=== PATIENT | female | born 1955 | race Caucasian/White ===

== ENCOUNTER 2017-01-04 10:01 | Observation (INO) | payer BC ==
[2017-01-04] MEDS ORDERED: hydrALAZINE HCL 20 MG/ML 1 ML VIAL IVP STA (10:30)
--- NOTE | 2017-01-04 10:38 | ED ---
General Adult HPI - General Source: patient, RN notes reviewed Mode of arrival: ambulatory Limitations: no limitations <Tom Ontiveros - Last Filed: 01/04/17 12:53> <Fernando Topete - Last Filed: 01/04/17 13:29> - General Chief complaint: Recheck/Abnormal Lab/Rx Stated complaint: HTN Time Seen by Provider: 01/04/17 10:23 - History of Present Illness Initial comments: Patient 61-year-old female with significant past medical history for hypertension, who presents emergency room today with a chief complaint of elevated blood pressure and a headache. She states she can tell when her blood pressure is elevated she does get these headaches. States she went to the pharmacy noticeable blood pressure was elevated there. She states metoprolol along with lisinopril. She is on 50 mg metoprolol 5 mg lisinopril. She states she took these medications. Patient denies any other complaints associated symptoms. Patient denies any recent fever, chills, shortness of breath, chest pain, back pain, abdominal pain, nausea or vomiting, numbness or tingling, dysuria or hematuria, constipation or diarrhea, visual changes, or any other complaints (Tom Ontiveros) - Related Data Home Medications Medication Instructions Recorded Confirmed Lisinopril [Zestril] 5 mg PO DAILY 06/02/15 01/04/17 Metoprolol Succinate [Toprol XL] 50 mg PO DAILY 06/02/15 01/04/17 Azithromycin [Zithromax Z-pack] See Taper PO DIRECTED 01/04/17 01/04/17 Benzonatate [Tessalon Perles] 100 mg PO TID PRN 01/04/17 01/04/17 Fluticasone Nasal Norris [Flonase 1 - 2 spr EA NOSTRIL DAILY PRN 01/04/17 Nasal Norris] Allergies Allergy/AdvReac Type Severity Reaction Status Date / Time meperidine HCl [From Demerol] AdvReac Nausea Verified 01/04/17 11:02 Review of Systems ROS Other: All systems not noted in ROS Statement are negative. <Tom Ontiveros - Last Filed: 01/04/17 12:53> ROS Other: All systems not noted in ROS Statement are negative. <Fernando Topete - Last Filed: 01/04/17 13:29> ROS Statement: Those systems with pertinent positive or pertinent negative responses have been documented in the HPI. Past Medical History Past Medical History: Hypertension History of Any Multi-Drug Resistant Organisms: None Reported Past Surgical History: Bladder Surgery, Hysterectomy Past Psychological History: Anxiety, Bipolar, Depression Smoking Status: Current some day smoker Past Alcohol Use History: Heavy Past Drug Use History: None Reported <WestonTom - Last Filed: 01/04/17 12:53> General Exam Limitations: no limitations <WestonTom - Last Filed: 01/04/17 12:53> General appearance: alert, in no apparent distress Head exam: Present: atraumatic, normocephalic, normal inspection Eye exam: Present: normal appearance, PERRL, EOMI. Absent: scleral icterus, conjunctival injection, periorbital swelling ENT exam: Present: normal exam, mucous membranes moist Neck exam: Present: normal inspection. Absent: tenderness, meningismus, lymphadenopathy Respiratory exam: Present: normal lung sounds bilaterally. Absent: respiratory distress, wheezes, rales, rhonchi, stridor Cardiovascular Exam: Present: regular rate, normal rhythm, normal heart sounds. Absent: systolic murmur, diastolic murmur, rubs, gallop, clicks GI/Abdominal exam: Present: soft, normal bowel sounds. Absent: distended, tenderness, guarding, rebound, rigid Extremities exam: Present: normal inspection, full ROM, normal capillary refill. Absent: tenderness, pedal edema, joint swelling, calf tenderness Back exam: Present: normal inspection Neurological exam: Present: alert, oriented X3, CN II-XII intact Psychiatric exam: Present: normal affect, normal mood Skin exam: Present: warm, dry, intact, normal color. Absent: rash <Fernando Topete - Last Filed: 01/04/17 13:29> - General Exam Comments Initial Comments: General: The patient is awake and alert, in no distress, and does not appear acutely ill. Eye: Pupils are equal, round and reactive to light, extra-ocular movements are intact. No nystagmus. There is normal conjunctiva bilaterally. No signs of icterus. Ears, nose, mouth and throat: There are moist mucous membranes and no oral lesions. Neck: The neck is supple, there is no tenderness or JVD. Cardiovascular: There is a regular rate and rhythm. No murmur, rub or gallop is appreciated. Respiratory: Lungs are clear to auscultation, respirations are non-labored, breath sounds are equal. No wheezes, stridor, rales, or rhonchi. Musculoskeletal: Normal ROM, no tenderness. Strength 5/5. Sensation intact. Pulses equal bilaterally 2+. Neurological: A&O x 3. CN II-XII intact, There are no obvious motor or sensory deficits. Coordination appears grossly intact. Speech is normal. Skin: Skin is warm and dry and no rashes or lesions are noted. Psychiatric: Cooperative, appropriate mood & affect, normal judgment. (Tom Ontiveros) Course <Tom Ontiveros - Last Filed: 01/04/17 12:53> <Fernando Topete - Last Filed: 01/04/17 13:29> Vital Signs 01/04/17 01/04/17 01/04/17 10:02 10:47 12:01 Temperature 98.1 F Pulse Rate 91 78 87 Respiratory 20 18 18 Rate Blood Pressure 187/86 156/74 169/79 O2 Sat by Pulse 99 98 98 Oximetry - Reevaluation(s) Reevaluation #1: 01/04/17 10:59 I did reevaluate the patient at this time she does admit that she had chest pain earlier this morning. Patient did not talk about chest pain and initial HPI. Apparently she did mention palpitations and chest pain to nursing staff. Did see a EKG at 1052 were notified about the symptoms and confirmed with patient at this time. She states she is currently chest pain-free. (Tom Ontiveros) EKG Findings - EKG Comments: EKG Findings:: EKG was 1052: Shows normal sinus rhythm at 94 bpm NJ interval 154. QRS 98. QT/QTC 384/480. No acute ST changes. <Tom Ontiveros - Last Filed: 01/04/17 12:53> Medical Decision Making - Lab Data Result diagrams: 01/04/17 11:15 01/04/17 11:15 <Tom Ontiveros - Last Filed: 01/04/17 12:53> - Lab Data Result diagrams: 01/04/17 11:15 01/04/17 11:15 <Fernando Topete - Last Filed: 01/04/17 13:29> - Medical Decision Making Patient reexamined at this time shows no signs of distress. Patient is resting comfortably. Patient pain free at this time. EKG shows normal sinus rhythm with prolonged QT. No ST changes. Cardiac enzymes negative. She does admit to some chest discomfort with palpitations and also stating that she had some back pain at the time. Patient will be admitted to the hospital for serial enzymes. Case discussed with attending physician . (Tom Ontiveros) 61 female ER for evaluation of chest pain palpitations, history of high blood pressure, initial EKG and troponin are negative. Patient be admitted for serial troponins, EKG and anticoagulation, cardiology observation (Fernando Topete) - Lab Data Lab Results 01/04/17 01/04/17 01/04/17 Range/Units 11:15 11:15 11:15 WBC 8.6 (3.8-10.6) k/uL RBC 4.33 (3.80-5.40) m/uL Hgb 13.5 (11.4-16.0) gm/dL Hct 40.0 (34.0-46.0) % MCV 92.2 (80.0-100.0) fL MCH 31.1 (25.0-35.0) pg MCHC 33.7 (31.0-37.0) g/dL RDW 13.0 (11.5-15.5) % Plt Count 403 (150-450) k/uL Neutrophils % 68 % Lymphocytes % 27 % Monocytes % 3 % Eosinophils % 1 % Basophils % 0 % Neutrophils # 5.8 (1.3-7.7) k/uL Lymphocytes # 2.3 (1.0-4.8) k/uL Monocytes # 0.3 (0-1.0) k/uL Eosinophils # 0.1 (0-0.7) k/uL Basophils # 0.0 (0-0.2) k/uL PT (9.0-12.0) sec INR (<1.1) APTT (22.0-30.0) sec Sodium 143 (137-145) mmol/L Potassium 3.8 (3.5-5.1) mmol/L Chloride 106 (98-107) mmol/L Carbon Dioxide 26 (22-30) mmol/L Anion Gap 11 mmol/L BUN 9 (7-17) mg/dL Creatinine 0.70 (0.52-1.04) mg/dL Est GFR (MDRD) Af Amer >60 (>60 ml/min/1.73 sqM) Est GFR (MDRD) Non-Af >60 (>60 ml/min/1.73 sqM) Glucose 103 H (74-99) mg/dL Calcium 9.7 (8.4-10.2) mg/dL Magnesium 2.2 (1.6-2.3) mg/dL Total Bilirubin 0.6 (0.2-1.3) mg/dL AST 22 (14-36) U/L ALT 34 (9-52) U/L Alkaline Phosphatase 76 (38-126) U/L Total Creatine Kinase 102 (30-135) U/L CK-MB (CK-2) 0.8 (0.0-2.4) ng/mL CK-MB (CK-2) Rel Index 0.8 Troponin I <0.012 (0.000-0.034) ng/mL Total Protein 7.6 (6.3-8.2) g/dL Albumin 4.3 (3.5-5.0) g/dL 01/04/17 Range/Units 11:15 WBC (3.8-10.6) k/uL RBC (3.80-5.40) m/uL Hgb (11.4-16.0) gm/dL Hct (34.0-46.0) % MCV (80.0-100.0) fL MCH (25.0-35.0) pg MCHC (31.0-37.0) g/dL RDW (11.5-15.5) % Plt Count (150-450) k/uL Neutrophils % % Lymphocytes % % Monocytes % % Eosinophils % % Basophils % % Neutrophils # (1.3-7.7) k/uL Lymphocytes # (1.0-4.8) k/uL Monocytes # (0-1.0) k/uL Eosinophils # (0-0.7) k/uL Basophils # (0-0.2) k/uL PT 10.1 (9.0-12.0) sec INR 1.0 (<1.1) APTT 22.5 (22.0-30.0) sec Sodium (137-145) mmol/L Potassium (3.5-5.1) mmol/L Chloride (98-107) mmol/L Carbon Dioxide (22-30) mmol/L Anion Gap mmol/L BUN (7-17) mg/dL Creatinine (0.52-1.04) mg/dL Est GFR (MDRD) Af Amer (>60 ml/min/1.73 sqM) Est GFR (MDRD) Non-Af (>60 ml/min/1.73 sqM) Glucose (74-99) mg/dL Calcium (8.4-10.2) mg/dL Magnesium (1.6-2.3) mg/dL Total Bilirubin (0.2-1.3) mg/dL AST (14-36) U/L ALT (9-52) U/L Alkaline Phosphatase (38-126) U/L Total Creatine Kinase (30-135) U/L CK-MB (CK-2) (0.0-2.4) ng/mL CK-MB (CK-2) Rel Index Troponin I (0.000-0.034) ng/mL Total Protein (6.3-8.2) g/dL Albumin (3.5-5.0) g/dL Critical Care Time Critical Care Time: Yes Total Critical Care Time: 31 <Fernando Topete - Last Filed: 01/04/17 13:29> Disposition Time of Disposition: 12:45 <Tom Ontiveros - Last Filed: 01/04/17 12:53> <Fernando Topete - Last Filed: 01/04/17 13:29> Clinical Impression: Chest pain, Hypertension Disposition: ADMITTED IP TO THIS [facility] Condition: Stable Referrals: Eloy Holguin MD [Primary Care Provider] - 1-2 days
--- NOTE | 2017-01-04 11:12 | XR ---
EXAMINATION TYPE: XR chest 2V DATE OF EXAM: 01/04/2017 11:07 AM COMPARISON: None HISTORY: 61-year-old female with chest pain, headache, elevated blood pressure TECHNIQUE: PA and lateral views FINDINGS: The cardiomediastinal silhouette, aorta, and pulmonary vasculature are within normal limits. Mild int erstitial prominence has a chronic appearance. No consolidation or pleural effusion. IMPRESSION: Chronic, senescent appearing changes without acute cardiopulmonary process.
[2017-01-04 11:33] LABS: Basophils % (A) 0 %; CH 31.6; CHCM 34.5; Eosinophils # (A) 0.1 k/uL (0-0.7); Eosinophils % (A) 1 %; HDW 2.31; HGB 13.5 gm/dL (11.4-16.0); Luc # (Auto) 0.14; Luc % (Auto) 2; Lymphocytes # (A) 2.3 k/uL (1.0-4.8); Lymphocytes % (A) 27 %; MCH 31.1 pg (25.0-35.0); MCHC 33.7 g/dL (31.0-37.0); MCV 92.2 fL (80.0-100.0); Mean Platelet Volume 6.3; Monocytes # (A) 0.3 k/uL (0-1.0); Monocytes % (A) 3 %; Neutrophils # (A) 5.8 k/uL (1.3-7.7); Neutrophils % (A) 68 %; RBC 4.33 m/uL (3.80-5.40); WBC 8.6 k/uL (3.8-10.6); WBC (Perox) 9.01
[2017-01-04 11:48] LABS: ALT 34 U/L (9-52); AST 22 U/L (14-36); Alkaline Phosphatase 76 U/L (38-126); Anion Gap 11 mmol/L; Blood Urea Nitrogen 9 mg/dL (7-17); Calcium 9.7 mg/dL (8.4-10.2); Carbon Dioxide 26 mmol/L (22-30); Chloride 106 mmol/L (98-107); Glucose 103 mg/dL (74-99); Magnesium 2.2 mg/dL (1.6-2.3); Non-African American GFR(MDRD) >60 (>60 ml/min/1.73 sqM); Potassium 3.8 mmol/L (3.5-5.1); Sodium 143 mmol/L (137-145); Total Bilirubin 0.6 mg/dL (0.2-1.3); Total Protein 7.6 g/dL (6.3-8.2)
[2017-01-04 12:03] LABS: Creatine Kinase 102 U/L (30-135)
[2017-01-04 12:16] LABS: Creatine Kinase MB 0.8 ng/mL (0.0-2.4); Troponin I <0.012 ng/mL (0.000-0.034)
[2017-01-04 12:31] LABS: Partial Thromboplastin Time 22.5 sec (22.0-30.0); Prothrombin Time 10.1 sec (9.0-12.0)
[2017-01-04] MEDS ORDERED: SODIUM CHLORIDE 0.9% 1,000 ML IV ONE (12:56)
[2017-01-04] MEDS ORDERED: ASPIRIN 81 MG CHEW PO STA (12:56)
[2017-01-04] MEDS ORDERED: HEPARIN SODIUM,PORCINE 5,000 UNIT/ML 1 ML VIAL IV ONE (12:56)
[2017-01-04] MEDS ORDERED: NITROGLYCERIN SL TABS 0.4 MG TAB SUBLINGUAL PRN (12:56)
[2017-01-04] MEDS ORDERED: HEPARIN SODIUM,PORCINE/D5W PMX 25,000 UNIT in DEXTROSE/WATER 1 500ML.BAG IV SCH (13:00)
[2017-01-04 16:57] VITALS: BMI 32.8
[2017-01-04 18:00] LABS: Creatine Kinase 95 U/L (30-135)
[2017-01-04 18:12] LABS: Creatine Kinase MB 0.7 ng/mL (0.0-2.4); Troponin I <0.012 ng/mL (0.000-0.034)
[2017-01-04] MEDS ORDERED: MAG HYDROX/AL HYDROX/SIMETH 30 ML CUP PO PRN (19:28)
[2017-01-04 19:53] VITALS: RESP 18
[2017-01-04] MEDS ORDERED: AZITHROMYCIN 250 MG TAB PO SCH (21:00)
[2017-01-04] MEDS ORDERED: FLUTICASONE 50MCG/SPRAY NASAL 16GM EA NOSTRIL PRN (21:00)
[2017-01-04] MEDS ORDERED: BENZONATATE 100 MG CAP PO PRN (21:00)
[2017-01-04] MEDS ORDERED: MELATONIN 3 MG TABLET PO SCH (21:15)
[2017-01-04] MEDS: traMADol 50 MG TAB PO PRN ×2 (22:10→22:14)
[2017-01-04] MEDS: ALPRAZolam 0.25 MG TAB PO PRN (22:11)
[2017-01-04 23:39] LABS: Creatine Kinase 86 U/L (30-135)
[2017-01-04 23:49] LABS: Creatine Kinase MB 0.7 ng/mL (0.0-2.4); Troponin I <0.012 ng/mL (0.000-0.034)
[2017-01-04] MEDS: LISINOPRIL 5 MG TAB PO SCH (23:57)
[2017-01-05 07:20] LABS: Cholesterol 144 mg/dL (<200); HDL Cholesterol 54 mg/dL (40-60); Triglycerides 88 mg/dL (<150)
[2017-01-05] MEDS: traMADol 50 MG TAB PO PRN (07:35)
[2017-01-05] MEDS ORDERED: AZITHROMYCIN 250 MG TAB PO SCH (09:00)
[2017-01-05] MEDS ORDERED: ASPIRIN 325 MG TAB PO SCH (09:00)
[2017-01-05] MEDS ORDERED: METOPROLOL SUCCINATE (ER) 50 MG TAB.ER.24H PO SCH (09:00)
--- NOTE | 2017-01-05 10:52 | P.CRDCN ---
History of Present Illness Consult date: 01/05/17 History of present illness: This is a 61-year-old female with history of hypertension who was involved was recently and had cold-like symptoms and cough. Patient could not get any antibiotics until she came back here. She came to the emergency room mainly with complaints of elevated blood pressure and headache. She went to the pharmacy and they found out that her blood pressure was high. She was taking lisinopril and metoprolol for blood pressure control. In the emergency room. She also complained of mild chest tightness which is has had from time to time. Patient's blood pressure is well controlled this morning. She is feeling much better. She feels like she wants to go home. Her EKGs did not reveal any acute changes. Cardiac enzymes are negative. We'll get an echocardiogram done this morning. If that shows normal wall motion and thickening, patient could be discharged home. She could be scheduled for outpatient stress test and follow-up in the office. Review of Systems REVIEW OF SYSTEMS: CONSTITUTIONAL:. Patient is doing well. No complaints of fever or chills EYES: Denies diplopia, blurring of vision EARS, NOSE, MOUTH, THROAT: Denies headaches, denies sore throat. CARDIOVASCULAR: As per HPI RESPIRATORY: As per HPI GASTROINTESTINAL: Denies change in appetite, denies abdominal pain, denies diarrhea GENITOURINARY: Denies hematuria, denies infections. MUSKULOSKELETAL: Denies pain, denies swelling. Denies any cramps or claudication INTEGUMENTARY: Denies rash, denies eczema. NEUROLOGICAL: Denies focal weakness, or visual disturbance. Denies any dizziness or syncope PSYCHIATRIC: Denies anxiety, denies depression. HEMATOLOGIC/LYMPHATIC: Denies any bleeding, denies enlarged lymph nodes. Past Medical History Past Medical History: GERD/Reflux, Hypertension Additional Past Medical History / Comment(s): rheumatic fever History of Any Multi-Drug Resistant Organisms: None Reported Past Surgical History: Bladder Surgery, Hysterectomy Additional Past Surgical History / Comment(s): pin in right foot Past Anesthesia/Blood Transfusion Reactions: No Reported Reaction Past Psychological History: Anxiety, Bipolar, Depression Smoking Status: Current some day smoker Past Alcohol Use History: Heavy Past Drug Use History: None Reported - Past Family History Mother Family Medical History: Hypertension Additional Family Medical History / Comment(s): bipolar Medications and Allergies Home Medications Medication Instructions Recorded Confirmed Type Lisinopril [Zestril] 5 mg PO DAILY 06/02/15 01/04/17 History Metoprolol Succinate [Toprol XL] 50 mg PO DAILY 06/02/15 01/04/17 History Azithromycin [Zithromax Z-pack] See Taper PO DIRECTED 01/04/17 01/04/17 History Benzonatate [Tessalon Perles] 100 mg PO TID PRN 01/04/17 01/04/17 History Fluticasone Nasal Ward [Flonase 1 - 2 spr EA NOSTRIL DAILY PRN 01/04/17 History Nasal Ward] Allergies Allergy/AdvReac Type Severity Reaction Status Date / Time meperidine HCl [From Demerol] AdvReac Nausea Verified 01/04/17 11:02 Physical Exam Vitals: Vital Signs Temp Pulse Pulse Resp BP BP Pulse Ox 01/05/17 08:00 97.6 F 74 18 125/66 96 01/05/17 04:00 98 F 76 18 145/71 99 01/05/17 00:00 76 18 01/04/17 23:20 76 18 141/81 99 01/04/17 20:00 78 18 01/04/17 19:52 97.5 F L 99 18 153/94 97 01/04/17 16:30 98.0 F 92 16 170/73 97 01/04/17 16:25 99.0 F 84 18 162/80 98 01/04/17 15:59 99.0 F 84 18 162/80 98 01/04/17 14:00 76 18 168/77 99 Intake and Output 01/04/17 01/05/17 01/05/17 22:59 06:59 14:59 Intake Total 610 320 Balance 610 320 Intake: Intake, IV Titration 160 320 Amount Heparin Sodium,Porcine/ 80 160 D5w Pmx 25,000 unit In Dextrose/Water 1 500ml. bag @ 10.651 UNITS/KG/HR 20 mls/hr IV .Q24H [facility] Rx #:[id number] Sodium Chloride 0.9% 1, 80 160 000 ml @ 20 mls/hr IV . Q24H [facility] Rx#:[id number] Oral 450 Other: Voiding Method Toilet Toilet Toilet # Voids 2 2 Weight 92.2 kg GENERAL EXAM: Patient is alert and oriented and doesn't appear to be in any acute distress HEENT: Normocephalic. Normal reaction of pupils, equal size, normal range of extraocular motion. No erythema or exudates in the throat. NECK: No masses, no nuchal rigidity. CHEST: No chest wall deformity. LUNGS: Equal air entry with no crackles or wheeze. HEART: S1 and S2 normal with no audible mumurs or gallops. Regular rhythm, femorals equal on both sides.. ABDOMEN: No hepatosplenomegaly, normal bowel sounds, no guarding or rigidity. SKIN: No rashes CENTRAL NERVOUS SYSTEM: No focal deficits. EXTREMITIES: No cyanosis, clubbing or edema. Results 01/04/17 11:15 01/04/17 11:15 Cardiac Enzymes 01/04/17 01/04/17 Range/Units 17:17 22:37 CK-MB (CK-2) 0.7 0.7 (0.0-2.4) ng/mL Troponin I <0.012 <0.012 (0.000-0.034) ng/mL Coagulation 01/05/17 Range/Units 06:16 APTT 31.7 H (22.0-30.0) sec Lipids 01/05/17 Range/Units 06:16 Triglycerides 88 (<150) mg/dL Cholesterol 144 (<200) mg/dL HDL Cholesterol 54 (40-60) mg/dL Current Medications Generic Name Dose Route Start Last Admin Trade Name Freq PRN Reason Stop Dose Admin Al Hydroxide/Mg Hydroxide 30 ml 01/04/17 19:28 Maalox PO Q4HR PRN GI Upset Alprazolam 0.25 mg 01/04/17 21:03 01/04/17 22:11 Xanax PO 0.25 mg TID PRN Administration Anxiety Aspirin 325 mg 01/05/17 09:00 Aspirin PO DAILY [facility] Azithromycin 250 mg 01/05/17 09:00 Zithromax PO DAILY [facility] Benzonatate 100 mg 01/04/17 21:00 01/04/17 22:12 Tessalon Perles PO 100 mg TID PRN Administration Cough Fluticasone Propionate 1 - 2 spray 01/04/17 21:00 01/04/17 22:07 Flonase Nasal Ward EA NOSTRIL 1 spray DAILY PRN Administration Allergy Symptoms Heparin Sodium/Dextrose 25,000 500 mls @ 20 mls/hr 01/04/17 13:00 01/04/17 13 :47 unit/ IV Solution IV 10.651 units/kg/hr .Q24H [facility] 20 mls/hr Protocol Administration 10.651 UNITS/KG/HR Sodium Chloride 1,000 mls @ 20 mls/hr 01/04/17 12:56 01/04/17 14:36 Saline 0.9% IV 01/05/17 12:55 20 mls/hr .Q24H ONE Administration Lisinopril 5 mg 01/04/17 21:00 01/04/17 23:57 Zestril PO Not Given DAILY [facility]IN Melatonin 3 mg 01/04/17 21:15 01/04/17 22:08 Melatonin PO 3 mg HS [facility] Administration Metoprolol Succinate 50 mg 01/05/17 09:00 Toprol Xl PO DAILY [facility] Nitroglycerin 0.4 mg 01/04/17 12:56 Nitrostat SUBLINGUAL Q5M PRN Chest Pain Tramadol HCl 50 mg 01/04/17 21:05 01/05/17 07:35 Ultram PO 50 mg QID PRN Administration Pain Intake and Output 01/04/17 01/05/17 01/05/17 22:59 06:59 14:59 Intake Total 610 320 Balance 610 320 Intake: Intake, IV Titration 160 320 Amount Heparin Sodium,Porcine/ 80 160 D5w Pmx 25,000 unit In Dextrose/Water 1 500ml. bag @ 10.651 UNITS/KG/HR 20 mls/hr IV .Q24H [facility] Rx #:[id number] Sodium Chloride 0.9% 1, 80 160 000 ml @ 20 mls/hr IV . Q24H [facility] Rx#:[id number] Oral 450 Other: Voiding Method Toilet Toilet Toilet # Voids 2 2 Weight 92.2 kg EKG Interpretations (text) Sinus rhythm Assessment and Plan (1) Chest pain Status: Acute (2) Hypertension Status: Acute (3) URI (upper respiratory infection) Status: Acute Plan: Her blood pressure is better controlled this morning. She is feeling much better. Her chest tightness appears to be typical. Cardec enzymes and EKGs are normal. We'll get an echocardiogram done. If it shows normal wall motion, patient could be discharged home to have a stress test as an outpatient and follow-up as an outpatient.
[2017-01-05] MEDS ORDERED: ACETAMINOPHEN TAB 325 MG TAB PO PRN (11:04)
[2017-01-05] MEDS: LISINOPRIL 5 MG TAB PO SCH (11:05)
[2017-01-05] MEDS: ALPRAZolam 0.25 MG TAB PO PRN (11:10)
--- NOTE | 2017-01-05 11:25 | HP ---
CHIEF COMPLAINT: Chest pain. HISTORY OF PRESENT ILLNESS: Ms. Wagner is a 61-year-old with known history of hypertension, bipolar disorder and anxiety, came into the hospital with elevated blood pressure and headache. Apparently patient was in [place] 2 days prior, where she had upper respiratory infection and was given Z-Jacob. The patient was at home last night and blood pressure was high and also she fell asleep late at night and could not get to sleep. Patient was having headache, stabbing-type, and also chest pain and tightness, sometimes back pain worsening with cough. Patient decided to come to the hospital. Otherwise, the patient denied any fever or chills. No nausea or vomiting, abdominal pain. No visual changes. No focal weakness. Patient did take azithromycin for 3 days and 2 more doses are left at this time. Chest pain tightness does not have any associated nausea or vomiting. No associated dizziness or lightheadedness. Denied any diaphoresis. No orthopnea or PND. REVIEW OF SYSTEMS: CONSTITUTIONAL: No fever. No chills. Patient does have generalized weakness. RESPIRATORY: Patient does have cough and sometimes greenish sputum production. No short of breath. CARDIOVASCULAR: No chest pain at this time and no palpitations. No leg swelling. ABDOMEN: No nausea or vomiting or abdominal pain. GENITOURINARY: Negative. ENDOCRINE: Negative. PSYCHIATRIC: Negative. SKIN: Negative. All other 14-point review of systems negative except as described above. PAST MEDICAL HISTORY: Hypertension, bipolar and anxiety, History of rheumatic fever as a child and was on penicillin prophylaxis and angina. PAST SURGICAL HISTORY: Bladder surgery and hysterectomy. PSYCHOSOCIAL HISTORY: Anxiety, bipolar and depression. SOCIAL HISTORY: Currently occasional smoking 3 to 4 and also drinks 3 to 4 days per week, about 1 glass of wine. FAMILY HISTORY: The patient's mother had hypertension. No history of coronary artery disease in the family. Medications include meperidine. Home medications include: 1. Lisinopril. 2. Metoprolol. 3. Azithromycin. 4. Benzonatate. 5. Fluticasone nasal spray. PHYSICAL EXAMINATION: A 61-year-old female, lying in bed comfortably; awake, alert, oriented x3, appears to be in no distress. VITALS: Blood pressure is 153/94, pulse is 90, respirations 18, temperature afebrile, pulse ox 99% on room air. HEENT: Atraumatic, normocephalic. Neck is supple. No JVD. CVS: S1, S2 heard. No murmurs. No gallop. LUNGS: Bilateral air entry present. No wheezing. No crackles. Nonlabored breathing. ABDOMEN: Soft, nontender. Bowel sounds are present. NEUROLOGIC: Alert and oriented x3. No focal deficit. EXTREMITIES: No edema. Pulses palpable bilaterally. No clubbing or cyanosis. PSYCHIATRIC: Cooperative, anxious. LABORATORY DATA: WBC 8.6, hemoglobin 13.5, platelets 403, INR 1.0. Sodium 143, potassium 3.8, chloride 106, bicarb is 26, BUN 9, creatinine 0.7. Blood sugar is 103. Calcium 9.7, magnesium 2.2. Liver enzymes are not elevated. Troponin x2 negative. Albumin 4.3. EKG: Normal sinus rhythm. Chest x-ray: Chronic senescent-appearing changes without acute cardiopulmonary process. IMPRESSION: 1. Uncontrolled hypertension. 2. Headache and chest tightness likely due to uncontrolled hypertension. 3. Acute tracheobronchitis. The patient is on antibiotic treatment with azithromycin. 4. History of rheumatic fever as a child and completed penicillin prophylactic treatment. 5. History of angina/chest pain. 6. Bipolar disorder, anxiety and depression. 7. History of smoking. 8. Alcohol abuse 3 to 4 days per week. DISCUSSION AND PLAN: Patient will be continued on tele monitoring. Blood pressure medication will be restarted. Patient's tele monitoring, serial EKGs, troponin x2 negative at this time. Cardiology has been consulted for further evaluation. Otherwise, patient will be started on Maalox p.r.n. for upset and follow up closely. Further recommendations based on the clinical course.
[2017-01-05 12:03] VITALS: BP 101/62; PULSE 85; TEMP 97.9
--- NOTE | 2017-01-05 16:10 | ECHOF ---
Referral Reason:Chest pain and cardiomyopathy MEASUREMENTS -------- HEIGHT: 165.1 cm WEIGHT: 92.1 kg BP: 190/80 RVIDd: 2.0 cm (< 3.3) IVSd: 1.1 cm (0.6 - 1.1) LVIDd: 5.2 cm (3.9 - 5.3) LVPWd: 1.2 cm (0.6 - 1.1) IVSs: 1.1 cm LVIDs: 3.7 cm LVPWs: 1.3 cm LA Diam: 3.4 cm (2.7 - 3.8) Ao Diam: 2.9 cm (2.0 - 3.7) AV Cusp: 1.9 cm (1.5 - 2.6) LA Diam: 3.4 cm (2.7 - 3.8) MV EXCURSION: 17.245 mm (> 18.000) MV EF SLOPE: 77 mm/s (70 - 150) EPSS: 0.8 cm MV E Rom: 0.81 m/s MV DecT: 239 ms MV A Rom: 1.00 m/s MV E/A Ratio: 0.81 FINDINGS -------- Sinus rhythm. This was a technically good study. There is mild concentric left ventricular hypertrophy. Overall left ventricular systolic function is normal with, an EF between 55 - 60 %. The right ventricle is normal in size. The left atrial size is normal. The right atrial size is normal. The aortic valve is trileaflet, and appears structurally normal. No aortic stenosis or regurgitation. Mild mitral regurgitation is present. Mild tricuspid regurgitation present. There is no evidence of pulmonary hypertension. The right ventricular systolic pressure, as measured by Doppler, is {RVSP}. There is no pulmonic regurgitation present. The aortic root size is normal. There is no pericardial effusion. CONCLUSIONS -------- 1. There is mild concentric left ventricular hypertrophy. 2. Overall left ventricular systolic function is normal with, an EF between 55 - 60 %. 3. Mild mitral regurgitation is present. 4. Mild tricuspid regurgitation present. 5. There is no evidence of pulmonary hypertension. 6. The right ventricular systolic pressure, as measured by Doppler, is {RVSP}. 7. There is no pulmonic regurgitation present. 8. The aortic root size is normal. 9. There is no pericardial effusion. GLAZIER [employer]ASS: Kyleigh Adam RDCS
--- NOTE | 2017-01-09 | DS ---
DATE OF ADMISSION: 01/04/2017 DATE OF DISCHARGE: 01/05/2017 DISCHARGE DIAGNOSES: 1. Uncontrolled hypertension. 2. Headache and chest tightness, likely due to uncontrolled hypertension, resolved now. 3. Acute tracheobronchitis, on antibiotics. 4. History of rheumatic fever as a child and complete penicillin prophylactic treatment. 5. History of angina/chest pain. 6. Bipolar disorder, anxiety, depression. 7. History of alcohol abuse 3 to 4 days per week. HOSPITAL COURSE: Ms. Wagner is a 61-year-old ( ) smoking and alcohol abuse as well as anxiety and bipolar disorder, admitted to the hospital with complaints of chest tightness. Patient has been treated for upper respiratory infection with Z-Jacob. Patient was also found to have elevated blood pressure on admission. Patient was started back on her blood pressure medications and blood pressure has improved now. 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 Serial EKGs and troponins were negative. Cardiology saw the patient and recommended 2-D echocardiogram which showed ( ) no valvular abnormalities noted, no wall motion abnormalities. Patient is free of chest pain now. Patient was counseled about smoking cessation as well as ( ) addiction and discussed with the patient in detail and family at bedside. DISCHARGE PHYSICAL EXAMINATION: Wkrkg-[id number]-jpsb-old female lying in the bed comfortably. Alert and oriented x3. No apparent distress. VITALS: Blood pressure 101/62, pulse 85, respirations 18, temperature afebrile, pulse ox 96% on room air. Laboratory data reviewed. Discharge physical examination done. Discharge medications include: 1. Lisinopril 5 mg p.o. daily. 2. Metoprolol, Toprol XL 50 mg p.o. daily. 3. Azithromycin as per instructions on the Z-Jacob. 4. Tessalon Perles 100 mg p.o. t.i.d. p.r.n. 5. Fluticasone nasal spray 1-2 sprays in each nostril daily. 6. Xanax 0.25 mg p.o. at bedtime p.r.n. for anxiety. Discharge physical examination done. Discharge medications reviewed. Home with self-care. Activity as tolerated. Heart-healthy diet. Follow up with Dr. Holguin in 2 weeks.
== END 2017-01-05 16:50 | disposition home or self-care (01) ==
LOC: EC 10:01 → 3OBS 13:25
PROVIDERS: ADMIT Internal Medicine; ATTEND Internal Medicine
DX: I10 Essential (primary) hypertension (principal); R51 Headache; J20.9 Acute bronchitis, unspecified; J06.9 Acute upper respiratory infection, unspecified; R07.89 Other chest pain; F31.9 Bipolar disorder, unspecified; F41.9 Anxiety disorder, unspecified; F10.10 Alcohol abuse, uncomplicated; Z79.899 Other long term (current) drug therapy; Z88.5 Allergy status to narcotic agent; F17.200 Nicotine dependence, unspecified, uncomplicated
CPT/HCPCS: 99284 ×2; 96365 ×2; 96366 ×3; 96375 ×2; 96376 ×2; 36415; 93005; 93306; 80061; 80053; 82550; 82553; 83735; 84484; 85025; 85610; 85730 ×2; 71020; G0378 ×2; J0360; J1644 ×2

== ENCOUNTER → 2017-08-12 | Outpatient (CLI) | payer BC ==
--- NOTE | 2017-08-12 16:57 | XR ---
EXAMINATION TYPE: XR cervical spine comp DATE OF EXAM: 08/12/2017 COMPARISON: NONE HISTORY: Chronic left stiffness TECHNIQUE: 5 view cervical spine FINDINGS: The prevertebral space is normal. There is anterior cervical fusion C4-5. Disc space narrow ing is present C6-7. Some facet degenerative changes in the lower cervical spine. Foraminal narrowing C5-6 C6-7 on the left is present. Odontoid is limited due to occiput. IMPRESSION: 1. Left foraminal narrowing C5-6 C6-7. 2. 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 3. Degenerative disc changes C6-7
== END | disposition home or self-care (01) ==
LOC: RADXRMAIN 15:32
PROVIDERS: ATTEND Physician Assistant Medical
DX: M99.71 Connective tissue and disc stenosis of intervertebral foramina of cervical region (principal); M47.812 Spondylosis without myelopathy or radiculopathy, cervical region; Q76.49 Other congenital malformations of spine, not associated with scoliosis
CPT/HCPCS: 72050

== ENCOUNTER 2018-11-16 05:33 | Emergency (ER) | payer BC ==
--- NOTE | 2018-11-16 06:23 | ED ---
General Adult HPI - General Chief complaint: Back Pain/Injury Stated complaint: back pain Time Seen by Provider: 11/16/18 05:46 Source: patient, family Mode of arrival: ambulatory Limitations: no limitations - History of Present Illness Initial comments: Kyleigh is a 63-year-old female with a history of chronic neck pain for which she's had surgical intervention in the past. She presents the emergency department today for evaluation of severe pain down her entire thoracic spine. Patient reports the pain has kept her awake for the past few hours. She reports she can't find a comfortable position. Patient states she believes she may be having a heart attack. She describes the pain as a sharp sensation between her scapula down her entire spine. She is taken home medications with no relief. History of rheumatic fever but no known history of coronary artery disease, she does have a history of hypertension, she is a smoker. - Related Data Home Medications Medication Instructions Recorded Confirmed Lisinopril [Zestril] 5 mg PO DAILY 06/02/15 11/16/18 Metoprolol Succinate [Toprol XL] 50 mg PO DAILY 06/02/15 11/16/18 Fluticasone Nasal [place] [Flonase 1 - 2 spr EA NOSTRIL DAILY PRN 01/04/17 Nasal [place]] Previous Rx's Medication Instructions Recorded ALPRAZolam [Xanax] 0.25 mg PO HS PRN #15 tab 01/05/17 Ibuprofen [Motrin] 600 mg PO Q6HR PRN #30 tab 11/16/18 Methocarbamol [Robaxin] 500 mg PO QID #60 tab 11/16/18 Allergies Allergy/AdvReac Type Severity Reaction Status Date / Time meperidine HCl [From Demerol] AdvReac Nausea Verified 11/16/18 05:41 Review of Systems ROS Statement: Those systems with pertinent positive or pertinent negative responses have been documented in the HPI. ROS Other: All systems not noted in ROS Statement are negative. Past Medical History Past Medical History: GERD/Reflux, Hypertension Additional Past Medical History / Comment(s): rheumatic fever History of Any Multi-Drug Resistant Organisms: None Reported Past Surgical History: Bladder Surgery, Hysterectomy Additional Past Surgical History / Comment(s): pin in right foot Past Anesthesia/Blood Transfusion Reactions: No Reported Reaction Past Psychological History: Anxiety, Bipolar, Depression Smoking Status: Current some day smoker Past Alcohol Use History: Heavy Past Drug Use History: None Reported - Past Family History Mother Family Medical History: Hypertension Additional Family Medical History / Comment(s): bipolar General Exam - General Exam Comments Initial Comments: Physical Exam GENERAL: Patient is well-developed and well-nourished. Patient is nontoxic and well-hydrated and is in moderate distress secondary to pain HENT: Normocephalic, Atraumatic. EYES: PERRL, EOMI PULMONARY: Unlabored respirations. No audible rales rhonchi or wheezing was noted. CARDIOVASCULAR: There is a regular rate and rhythm without any gallops or rubs. Radial pulses are present and equal bilaterally DP and PT pulses were present and equal bilaterally Refills less than 2 seconds in all extremities ABDOMEN: Soft and nontender with normal bowel sounds. No pulsatile mass SKIN: Skin is clear with no lesions or rashes and otherwise unremarkable. No Diaphoresis, cyanosis or pallor : Deferred NEUROLOGIC: Patient is alert and oriented x3. Moving all extremities spontaneously MUSCULOSKELETAL: Normal extremities with adequate strength and full range of motion. No lower extremity swelling or edema. No calf tenderness. PSYCHIATRIC: Normal psychiatric evaluation. Limitations: no limitations Limitations: no limitations Course Vital Signs 11/16/18 11/16/18 11/16/18 05:36 07:30 08:24 Temperature 97.9 F 97.8 F Pulse Rate 78 70 71 Respiratory 18 16 16 Rate Blood Pressure 184/85 154/80 150/74 O2 Sat by Pulse 97 94 L 96 Oximetry EKG Findings - EKG Comments: EKG Findings:: EKG was obtained at 5:53 AM, rate is 69 rhythm is sinus there is a normal axis there are normal intervals, WI 172, QRS 92, QTc 432. There are no acute ST elevations or depressions is no evidence of acute ischemia or infarction. Medical Decision Making - Medical Decision Making Patient was seen and evaluated upon arrival to the emergency department. The patient is very uncomfortable experiencing upper back pain. Patient does have a history of hypertension and smoking. In addition the patient's noted to be very hypertensive upon arrival. Initially x-ray was ordered however due to patient's discomfort decision was made to pursue a CTA for possible dissection. Labs were obtained, IV morphine was given patient was taken to CT for evaluation Labs with no significant abnormalities Patient sleeping comfortably after IV morphine Computed tomography scan resulted with no acute vascular anomalies. The patient was reevaluated, she woke from sleep and reported resolution of her pain after morphine. Patient does believe her pain is musculoskeletal in nature. Patient does admit that she has been feeling ill recently and is been in bed thinks this is contributory to her back pain. At this time the patient is stable for discharge home. All questions pertaining care were answered return parameters were discussed patient discharged home in stable condition - Lab Data Result diagrams: 11/16/18 06:30 11/16/18 06:30 Lab Results 11/16/18 11/16/18 11/16/18 Range/Units 06:30 06:30 06:30 WBC 8.2 (3.8-10.6) k/uL RBC 4.47 (3.80-5.40) m/uL Hgb 13.7 (11.4-16.0) gm/dL Hct 41.2 (34.0-46.0) % MCV 92.2 (80.0-100.0) fL MCH 30.7 (25.0-35.0) pg MCHC 33.3 (31.0-37.0) g/dL RDW 12.7 (11.5-15.5) % Plt Count 262 (150-450) k/uL Neutrophils % 69 % Lymphocytes % 22 % Monocytes % 4 % Eosinophils % 4 % Basophils % 0 % Neutrophils # 5.6 (1.3-7.7) k/uL Lymphocytes # 1.8 (1.0-4.8) k/uL Monocytes # 0.4 (0-1.0) k/uL Eosinophils # 0.3 (0-0.7) k/uL Basophils # 0.0 (0-0.2) k/uL PT (9.0-12.0) sec INR (<1.2) APTT (22.0-30.0) sec Sodium 141 (137-145) mmol/L Potassium 4.3 (3.5-5.1) mmol/L Chloride 108 H (98-107) mmol/L Carbon Dioxide 24 (22-30) mmol/L Anion Gap 9 mmol/L BUN 12 (7-17) mg/dL Creatinine 0.64 (0.52-1.04) mg/dL Est GFR (CKD-EPI)AfAm >90 (>60 ml/min/1.73 sqM) Est GFR (CKD-EPI)NonAf >90 (>60 ml/min/1.73 sqM) Glucose 111 H (74-99) mg/dL Calcium 10.2 (8.4-10.2) mg/dL Magnesium 2.2 (1.6-2.3) mg/dL Total Bilirubin 0.4 (0.2-1.3) mg/dL AST 24 (14-36) U/L ALT 37 (9-52) U/L Alkaline Phosphatase 76 (38-126) U/L Troponin I (0.000-0.034) ng/mL NT-Pro-B Natriuret Pep 191 pg/mL Total Protein 7.6 (6.3-8.2) g/dL Albumin 4.5 (3.5-5.0) g/dL 11/16/18 11/16/18 Range/Units 06:30 06:30 WBC (3.8-10.6) k/uL RBC (3.80-5.40) m/uL Hgb (11.4-16.0) gm/dL Hct (34.0-46.0) % MCV (80.0-100.0) fL MCH (25.0-35.0) pg MCHC (31.0-37.0) g/dL RDW (11.5-15.5) % Plt Count (150-450) k/uL Neutrophils % % Lymphocytes % % Monocytes % % Eosinophils % % Basophils % % Neutrophils # (1.3-7.7) k/uL Lymphocytes # (1.0-4.8) k/uL Monocytes # (0-1.0) k/uL Eosinophils # (0-0.7) k/uL Basophils # (0-0.2) k/uL PT 9.4 (9.0-12.0) sec INR 0.9 (<1.2) APTT 20.8 L (22.0-30.0) sec Sodium (137-145) mmol/L Potassium (3.5-5.1) mmol/L Chloride (98-107) mmol/L Carbon Dioxide (22-30) mmol/L Anion Gap mmol/L BUN (7-17) mg/dL Creatinine (0.52-1.04) mg/dL Est GFR (CKD-EPI)AfAm (>60 ml/min/1.73 sqM) Est GFR (CKD-EPI)NonAf (>60 ml/min/1.73 sqM) Glucose (74-99) mg/dL Calcium (8.4-10.2) mg/dL Magnesium (1.6-2.3) mg/dL Total Bilirubin (0.2-1.3) mg/dL AST (14-36) U/L ALT (9-52) U/L Alkaline Phosphatase (38-126) U/L Troponin I <0.012 (0.000-0.034) ng/mL NT-Pro-B Natriuret Pep pg/mL Total Protein (6.3-8.2) g/dL Albumin (3.5-5.0) g/dL Disposition Clinical Impression: Mechanical back pain Disposition: HOME SELF-CARE Condition: Good Instructions (If sedation given, give patient instructions): Acute Low Back Pain (ED) Prescriptions: Ibuprofen [Motrin] 600 mg PO Q6HR PRN #30 tab PRN Reason: Pain Methocarbamol [Robaxin] 500 mg PO QID #60 tab Is patient prescribed a controlled substance at d/c from ED?: No Referrals: Bryon Goodwin DO [Primary Care Provider] - 1-2 days Time of Disposition: 07:54
[2018-11-16] MEDS ORDERED: SODIUM CHLORIDE 0.9% 1,000 ML IV STA (06:24)
[2018-11-16] MEDS ORDERED: MORPHINE SULFATE 4 MG/ML SYRINGE IVP STA (06:24)
[2018-11-16] MEDS ORDERED: ONDANSETRON 4 MG/2 ML VIAL IVP STA (06:24)
[2018-11-16 06:50] LABS: Basophils % (A) 0 %; Eosinophils # (A) 0.3 k/uL (0-0.7); Eosinophils % (A) 4 %; HCT 41.2 % (34.0-46.0); HGB 13.7 gm/dL (11.4-16.0); Lymphocytes # (A) 1.8 k/uL (1.0-4.8); Lymphocytes % (A) 22 %; MCH 30.7 pg (25.0-35.0); MCHC 33.3 g/dL (31.0-37.0); MCV 92.2 fL (80.0-100.0); Mean Platelet Volume 6.3; Monocytes # (A) 0.4 k/uL (0-1.0); Monocytes % (A) 4 %; Neutrophils # (A) 5.6 k/uL (1.3-7.7); Neutrophils % (A) 69 %; Platelet Count 262 k/uL (150-450); RBC 4.47 m/uL (3.80-5.40); RDW 12.7 % (11.5-15.5); WBC 8.2 k/uL (3.8-10.6)
[2018-11-16 06:58] LABS: ALT 37 U/L (9-52); AST 24 U/L (14-36); Albumin 4.5 g/dL (3.5-5.0); Alkaline Phosphatase 76 U/L (38-126); Anion Gap 9 mmol/L; Blood Urea Nitrogen 12 mg/dL (7-17); Calcium 10.2 mg/dL (8.4-10.2); Carbon Dioxide 24 mmol/L (22-30); Chloride 108 mmol/L (98-107); Glucose 111 mg/dL (74-99); Magnesium 2.2 mg/dL (1.6-2.3); Potassium 4.3 mmol/L (3.5-5.1); Sodium 141 mmol/L (137-145); Total Bilirubin 0.4 mg/dL (0.2-1.3); Total Protein 7.6 g/dL (6.3-8.2)
[2018-11-16 07:02] LABS: INR 0.9 (<1.2); Prothrombin Time 9.4 sec (9.0-12.0)
[2018-11-16 07:17] LABS: Partial Thromboplastin Time 20.8 sec (22.0-30.0)
--- NOTE | 2018-11-16 07:31 | CT ---
EXAMINATION TYPE: CT angio thor/abd pel aorta DATE OF EXAM: 11/16/2018 COMPARISON: None HISTORY: 63-year-old female with severe back pain, rule out dissection TECHNIQUE: Contiguous axial scanning of the chest, abdomen, and pelvis performed without and with IV Contrast, patient injected with 100 mL of Isovue 370. Coronal/sagittal MIP reconstructions performed. 3-D reconstructions generated on a dedicated independent workstation. CT DLP: 1476.2 mGycm Automated exposure control for dose reduction was used. FINDINGS: Vasculature: Initial noncontrast images show no evidence for acute intramural hematoma. No significant atherosclerotic changes are identified. There is borderline ectasia of the ascending aorta at 3.5 cm. Conventional arch vessel branching anatomy. Incidental very early takeoff of a nondominant left vertebral artery from the left subclavian artery. Ectasia upper descending thoracic aorta at 3.1 cm. No evidence for aortic dissection or otherwise any evidence for aortic aneurysm. There is an accessory right renal artery noted. Visceral arteries remain patent. CHEST: Heart upper limits of normal in size with trace basilar basilar pericardial fluid. No thoracic lymphadenopathy. Some strandy right lower lobe atelectasis. No consolidation or pleural effusion. Additional minimal s trandy atelectasis peripheral left base. Mild diffuse bronchial wall thickening. ABDOMEN: Liver mildly enlarged at 18.0 cm with low-attenuation. Some geographic hyperattenuation along the gal lbladder fossa compatible with focal fatty sparing. Gallbladder, adrenal glands, kidneys, spleen with tiny anterior splenule, and pancreas appear within normal limits. Tiny hiatal hernia. Mild circumferential wall thickening lower esophagus, or for exam coronal image 5 02. Prominent fluid filled small bowel loops in the lower abdomen and pelvis. No dilated small bowel, dm e fluid, or free air. Mild overall stool burden. Redundant sigmoid colon. No pericolonic inflammatory change. Antonia mesentery mid and left side of the abdomen with associated lymph nodes measuring up to 6 to 7 m m. Pelvis: Bladder is urine distended. Uterus surgically absent. Neither ovary visualized. Bones: Degenerative changes at the hips and left SI joint. Hypertrophic facet arthropathy mid to lower lumba r spine. Endplate spondylosis mid thoracic spine. Some degenerative hyperostosis along the lamina an d facets at T5-T6 seems to contribute to severe right neuroforaminal stenosis and at least mild spina l canal stenosis. IMPRESSION: 1. NO EVIDENCE FOR AORTIC ANEURYSM, DISSECTION, OR OTHER ACUTE AORTIC INJURY. 2. SMALL HIATAL HERNIA AND MILD CIRCUMFERENTIAL WALL THICKENING DISTAL ESOPHAGUS; CORRELATE FOR ANY S YMPTOMS OF A MILD ESOPHAGITIS. 3. MILD HEPATOMEGALY (18.0 CM) WITH MODERATE TO SEVERE HEPATIC STEATOSIS. CORRELATE WITH LFT's, LIPID PROFILE, AND PATIENT RISK FACTORS. 4. ANTONIA MESENTERY MID AND LEFT SIDE OF THE ABDOMEN WITH ASSOCIATED BORDERLINE SIZED LYMPH NODES FABRICE URING UP TO 7 MM. FINDINGS SUGGEST MESENTERIC PANNICULITIS. EARLY LYMPHOMA CAN ALSO HAVE THIS APPE ARANCE, THREE-MONTH FOLLOW-UP RECOMMENDED TO ENSURE STABILITY/RESOLUTION. 5. PROMINENT FLUID-FILLED SMALL BOWEL LOOPS LOWER ABDOMEN AND PELVIS MAY REPRESENT ENTERITIS. 6. SOME DEGENERATIVE CHANGES IN THE MIDTHORACIC SPINE PARTICULARLY AT T5-T6 CAUSES AT LEAST MILD SPIN AL CANAL STENOSIS AND APPARENT SEVERE RIGHT NEUROFORAMINAL STENOSIS.
[2018-11-16 07:35] VITALS: RESP 16
--- NOTE | 2018-11-16 07:47 | XR ---
EXAMINATION TYPE: XR chest 2V DATE OF EXAM: 11/16/2018 COMPARISON: 01/04/2017 HISTORY: 63-year-old female with chest pain TECHNIQUE: AP and lateral views FINDINGS: Heart mildly enlarged. Aorta and pulmonary vasculature within normal limits. There are low lung volum es and cardiovascular markings. Mild peribronchial cuffing is demonstrated. No nick consolidation or pleural effusion. IMPRESSION: Hypoventilatory changes. Some peribronchial cuffing is also suggested and could reflect bronchitis or asthma.
[2018-11-16 08:25] VITALS: BP 150/74; PULSE 71; TEMP 97.8
== END 2018-11-16 08:24 | disposition home or self-care (01) ==
LOC: EC 05:33
DX: M54.6 Pain in thoracic spine (principal); I10 Essential (primary) hypertension; F17.200 Nicotine dependence, unspecified, uncomplicated; Z79.899 Other long term (current) drug therapy; Z88.5 Allergy status to narcotic agent
CPT/HCPCS: 36415; 93005; 83880; 80053; 83735; 84484; 85025; 85610; 85730; 71046; 71275; 74174; 99284; 96374; 96375; 96361; J2270; J2405; Q9967

== ENCOUNTER → 2019-08-19 | Outpatient (CLI) | payer BC ==
--- NOTE | 2019-08-19 11:41 | CT ---
EXAMINATION TYPE: CT abdomen pelvis w con DATE OF EXAM: 08/19/2019 COMPARISON: None HISTORY: Enlarged lymph nodes, Hepatomegaly CT DLP: 1177.10 mGycm CONTRAST: CT scan of the abdomen and pelvis is performed with Oral Contrast and with IV Contrast, patient injec rocío with 100 ml mL of Isovue 300. FINDINGS: LUNG BASES-: No visible nodule. No infiltrate. LIVER/GB: No calcified gallstones. The liver is enlarged with underlying hepatic steatosis. No spa ce occupying hepatic lesion. Biliary tree is of normal caliber. PANCREAS: No inflammation. No distinct mass. SPLEEN: No splenic enlargement. No lesion seen. ADRENALS: No nodule. No thickening. KIDNEYS/BLADDER: No hydronephrosis. No nephrolithiasis. No distinct renal mass. Urinary bladder g rossly unremarkable. BOWEL: Normal appendix. Normal bowel caliber. No inflammation. GENITAL ORGANS: No gross abnormality. LYMPH NODES: No greater than 1cm abdominal or pelvic lymph nodes are appreciated. AORTA: No significant abnormality. OSSEOUS STRUCTURES: No significant abnormality is seen. OTHER: No significant additional abnormality is seen. IMPRESSION: 1. Hepatomegaly with underlying hepatic steatosis.
== END | disposition home or self-care (01) ==
LOC: RADCTMAIN 08:16
PROVIDERS: ATTEND Family Medicine
DX: K76.0 Fatty (change of) liver, not elsewhere classified (principal); R59.9 Enlarged lymph nodes, unspecified; R16.0 Hepatomegaly, not elsewhere classified
CPT/HCPCS: 74177; Q9967

== ENCOUNTER → 2019-10-27 | Outpatient (CLI) | payer BC ==
--- NOTE | 2019-10-28 11:33 | MM ---
Reason for exam: screening (asymptomatic). Last mammogram was performed 1 year and 3 months ago. History: Patient is postmenopausal. Family history of breast cancer in maternal grandmother at age 78. Took hormonal contraceptives for 2 years. Physical Findings: A clinical breast exam by your physician is recommended on an annual basis and results should be correlated with mammographic findings. MG Screening Mammo w CAD Bilateral CC and MLO view(s) were taken. Prior study comparison: July 31, 2018, bilateral MG 3d screening mammo w/cad. March 22, 2015, bilateral MG screening mammo w CAD. There are scattered fibroglandular densities. No significant changes when compared with prior studies. ASSESSMENT: Benign, BI-RAD 2 RECOMMENDATION: Routine screening mammogram of both breasts in 1 year.
== END | disposition home or self-care (01) ==
LOC: RADMAMWWP 16:33
PROVIDERS: ATTEND Family Medicine
DX: Z12.31 Encounter for screening mammogram for malignant neoplasm of breast (principal)
CPT/HCPCS: 77067

== ENCOUNTER → 2023-05-14 | Outpatient (CLI) | payer MEDICARE ==
--- NOTE | 2023-05-14 13:51 | BD ---
EXAMINATION TYPE: Axial Bone Density DATE OF EXAM: 05/14/2023 CLINICAL HISTORY: 67 years old Female. ICD-10 CODE: Z78.0 ASYMPTOMATIC MENOPAUSAL STA Height: Weight: FRAX RISK QUESTIONS: History of Fracture in Adulthood: yes Secondary Osteoporosis: yes 3. Menopause before 45: at 47 or a bit before 5. Chronic liver disease: fatty liver RISK FACTORS HISTORY OF: hx of lt wrist fx as an adult History of Wrist Fracture: hx of lt wrist fx last year Postmenopausal woman: yes, at age 47 Take estrogen and/or progesterone medications: yes, for a few yrs, none now Lost more than 2 inches in height since high school: yes Hyperparathyroidism: no Adrenal Insufficiency: no MEDICATIONS: Additional Medications: bp meds, seizure meds in the past, stopped november 2022, reflux meds, vit d, mu scle relaxers Additional History: ankylosing spondylodesis, hypertension, reflux, early menopause, osteoarthritis EXAM MEASUREMENTS: Bone mineral densitometry was performed using the [employer] System. Bone mineral density as measured about the Lumbar spine is: ----- L1-L4(G/cm2): 1.398 T Score Values are as follows: ----- L1: 2.0 ----- L2: 1.6 ----- L3: 1.8 ----- L4: 1.7 ----- L1-L4: 1.8 Z Score Values are as follows: ----- L1: 2.6 ----- L2: 2.3 ----- L3: 2.5 ----- L4: 2.4 ----- L1-L4: 2.5 Bone mineral density is her first bone density at [facility]. Bone mineral density about the R hip (g/cm2): 0.927 Bone mineral density about the L hip (g/cm2): 1.006 T Score values are as follows: -----R Neck: -1.1 -----L Neck: -0.3 -----R Total: -0.6 -----L Total: 0.0 Z Score values are as follows: -----R Neck: -0.2 -----L Neck: 0.6 -----R Total: -0.1 -----L Total: 0.5 Bone mineral density is her first dexa at [facility]. FRAX%s: The graph provided illustrates a 12.8% chance for a major osteoporotic fx and a 1.0% chance f or the hips probability for fx in 10 years time. IMPRESSION: Normal (Values between +1 and -1 indicate normal bone mass). Consider repeating this study in 5 year s or sooner if there is some new clinical indication. NOTE: T-SCORE=SD OF THE YOUNG ADULT MEAN.
--- NOTE | 2023-05-15 10:09 | MM ---
Reason for Exam: Screening (asymptomatic). Last mammogram was performed 1 year(s) and 4 month(s) ago. Patient History: Menarche at age 16. First Full-Term at age 25. Hysterectomy at age 54. Postmenopausal. Patient has history of breast feeding. Other cancer. Patient used Hormonal Contraceptives for 2 years. Maternal grandmother had breast cancer, age 78. Risk Values: Rebecca 5 year model risk: 1.4%. NCI Lifetime model risk: 5.1%. Prior Study Comparison: 07/31/2018 Bilateral Screening Mammogram, [facility]. 10/27/2019 Bilateral Screening Mammogram, [facility]. 12/15/2021 Bilateral Screening Mammogram, [facility]. Tissue Density: There are scattered fibroglandular densities. Findings: Analyzed By CAD. There is no suspicious group of microcalcifications or new suspicious mass in either breast. Benign oil cyst within left breast. Stable chronic nodularity within the right breast. Overall Assessment: Benign, BI-RAD 2 Management: Screening Mammogram of both breasts in 1 year. A clinical breast exam by your physician is recommended on an annual basis and results should be correlated with mammographic findings. Note on Rebecca scores and lifetime risk: 1. A Rebecca score greater than 3% is considered moderate risk. If this is the case, consider specialist referral to assess eligibility for a risk reducing agent. If overall lifetime risk for the development of breast cancer is 20% or higher, the patient may qualify for future screening with alternating mammogram and breast MRI. Electronically signed and approved by: El Mendoza D.O.
== END | disposition home or self-care (01) ==
LOC: RADBDWWP 11:38
PROVIDERS: ATTEND Family Medicine
DX: Z12.31 Encounter for screening mammogram for malignant neoplasm of breast (principal); M85.851 Other specified disorders of bone density and structure, right thigh; Z78.0 Asymptomatic menopausal state; Z80.3 Family history of malignant neoplasm of breast
CPT/HCPCS: 77067; 77080